=== PATIENT | female | born 1985 | race Caucasian/White ===

== ENCOUNTER 2020-10-19 00:16 | Emergency (ER) | payer BC ==
[~2020-10-19] VITALS: Ht 154.9 cm; Wt 61.2 kg
--- NOTE | 2020-10-19 00:40 | NUR ---
URINE SAMPLE COLLECTED AND SENT TO LAB
[2020-10-19 00:50] LABS: BILIRUBIN,URINE Negative (NEGATIVE); COLOR,URINE AMBER (YELLOW); LEUKOCYTE ESTERASE ,URINE Small (NEGATIVE); NITRITE, URINE Positive (NEGATIVE); PROTEIN,URINE Negative (NEGATIVE); UGLUCOSE Negative (NEGATIVE); UROBILINOGEN,URINE 0.2 EU/dL (0.2)
--- NOTE | 2020-10-19 00:52 | NUR ---
PT CAME FROM HOME WITH C/O PAINFUL URINATION X 1 DAY. URINE SENT TO LAB
--- NOTE | 2020-10-19 01:13 | NUR ---
PT WENT OUT FOR CT WITHOUT CONTRAST.
[2020-10-19 01:32] LABS: BACTERIA,URINE Few /HPF (None Seen); SQUAMOUS EPITHELIAL CELL,UR Few /HPF (None Seen); WBC,URINE 21-50 /HPF (0-3)
[2020-10-19 02:44] LABS: BASOPHILS # (AUTO) 0.1 K/uL (0.0-0.2); BASOPHILS % (AUTO) 0.5 % (0.0-2.0); EOSINOPHILS % (AUTO) 3.8 % (0.0-6.0); HEMATOCRIT 34 % (33-45); HEMOGLOBIN 11.5 g/dL (11.5-14.8); LYMPHOCYTES # (AUTO) 2.5 K/uL (0.8-4.8); LYMPHOCYTES % (AUTO) 26.4 % (20.0-44.0); MEAN CORPUSCULAR HGB CONC 34 g/dl (31.0-36.0); MEAN CORPUSCULAR VOLUME 92 fL (82-100); MONOCYTES # (AUTO) 0.7 K/uL (0.1-1.30); MONOCYTES % (AUTO) 7.5 % (2.0-12.0); NEUTROPHILS # (AUTO) 5.8 K/uL (1.8-8.9); NEUTROPHILS % (AUTO) 61.8 % (43.0-81.0); PLATELET COUNT (AUTO) 247 K/uL (150-450); RED BLOOD CELL COUNT(AUTO) 3.73 MIL/uL (4.0-5.2); WHITE BLOOD COUNT (AUTO) 9.4 K/uL (4.3-11.0)
[2020-10-19] MEDS ORDERED: TRAMADOL HCL 50 MG TABLET ONE (02:45)
[2020-10-19 02:49] LABS: CALCIUM, SERUM 8.5 mg/dL (8.5-10.1); CREATININE 0.7 mg/dL (0.6-1.3); POTASSIUM 3.9 mmol/L (3.5-5.1)
[2020-10-19] MEDS ORDERED: TRAMADOL HCL 50 MG TABLET PO ONE (03:00)
[2020-10-19] MEDS ORDERED: CIPR500T5 PO (03:28)
[2020-10-19] MEDS ORDERED: TRAM50TA2 PO (03:29)
[2020-10-19] MEDS ORDERED: CIPROFLOXACIN HCL 500 MG TABLET ONE (03:29)
[2020-10-19] MEDS ORDERED: CIPROFLOXACIN HCL 500 MG TABLET PO ONE (03:30)
[2020-10-19 03:34] VITALS: BP 105/67
== END 2020-10-19 03:35 | disposition home or self-care (01) ==
LOC: ER 00:19
DX: N12 Tubulo-interstitial nephritis, not specified as acute or chronic (principal); Z88.6 Allergy status to analgesic agent
CPT/HCPCS: 36415; 80048-TC; 81001; 84703-TC; 85025-TC; 87086-TC